=== PATIENT | male | born 1960 | race Caucasian/White ===

== ENCOUNTER 2017-10-02 16:31 | Inpatient (IN) | payer OTHER ==
[~2017-10-02] VITALS: Ht 188 cm; Wt 127.8 kg
[2017-10-02] MEDS ORDERED: PRAVACHOL10 MG PO (17:44)
[2017-10-02] MEDS ORDERED: DECADRON4 M1 PO (17:47)
[2017-10-02] MEDS ORDERED: TRAMADOL HCL50 MG PO (17:48)
[2017-10-02 17:55] VITALS: BP 155/82
[2017-10-03 00:29] VITALS: BP 137/83
[2017-10-03 05:17] VITALS: BP 132/74
[2017-10-03 05:30] LABS: HEMATOCRIT 39.7 % (38.0-50.0); HEMOGLOBIN 14.1 G/DL (12.5-16.6); MCH 30.3 PG (29.0-34.0); MCHC 35.5 G/DL (30.0-36.0); MCV 85.4 FL (86-99); PLATELET COUNT 154 K/uL (156-360); RBC DIS.WIDTH-CV 11.8 % (11.8-14.6); RED BLOOD COUNT 4.65 M/uL (4.00-5.50); WHITE BLOOD COUNT 13.6 K/uL (4.1-10.2)
[2017-10-03 05:56] LABS: ALBUMIN 3.4 G/DL (3.2-4.8); ALKALINE PHOSPHATASE 49 IU/L (3-129); ALT (GPT) 74 IU/L (3-49); AST (GOT) 23 IU/L (2-34); CHLORIDE 104 MEQ/L (99-109); CREATININE 0.7 MG/DL (0.6-1.3); GFR ESTIMATE (CALCULATED) > 59 mL/min/ (58.99-99999); GLUCOSE 131 mg/dL (70-99); SODIUM 137 MEQ/L (136-147); TOTAL BILIRUBIN 1.1 MG/DL (0.0-1.0); UREA NITROGEN (BUN) 23 mg/dL (9-23)
[2017-10-03 16:19] VITALS: BP 125/73
[2017-10-04 05:13] VITALS: BP 101/58
[2017-10-04 15:44] VITALS: BP 121/65
[2017-10-05 05:43] VITALS: BP 108/61
[2017-10-05 15:59] VITALS: BP 133/60
[2017-10-06 05:24] VITALS: BP 121/63
[2017-10-06 16:27] VITALS: BP 105/50
[2017-10-07 04:07] VITALS: BP 118/61
[2017-10-07 15:37] VITALS: BP 113/57
[2017-10-08 04:57] VITALS: BP 110/61
[2017-10-08] MEDS ORDERED: THERAGRAN1 TABLET PO (14:45)
[2017-10-08] MEDS ORDERED: DEXAMETHASONE4 MG PO (14:45)
[2017-10-08] MEDS ORDERED: TYLENOL REGULA325 MG PO (14:45)
[2017-10-08] MEDS ORDERED: LEVETIRACETAM500 MG PO (14:45)
[2017-10-08 15:46] VITALS: BP 110/55
[2017-10-09 05:27] VITALS: BP 126/63
== END 2017-10-09 09:10 | DRG 949 ==
LOC: 3WEST 16:31 → ENPENDDIS 10-09 → 3WEST 10-09 09:10
PROVIDERS: Physical Medicine & Rehabilitation Pain Medicine
PROC: F07M0ZZ Range of Motion and Joint Mobility Treatment of Musculoskeletal System - Whole Body (ICD-10-PCS; principal; 2017-10-02)
DX: Z48.811 Encounter for surgical aftercare following surgery on the nervous system (principal); G89.18 Other acute postprocedural pain; M54.2 Cervicalgia; R26.9 Unspecified abnormalities of gait and mobility; R25.3 Fasciculation; R47.01 Aphasia; D62 Acute posthemorrhagic anemia; D72.829 Elevated white blood cell count, unspecified; E66.9 Obesity, unspecified; R53.1 Weakness; F17.290 Nicotine dependence, other tobacco product, uncomplicated; F41.9 Anxiety disorder, unspecified; G93.6 Cerebral edema; Z68.36 Body mass index [BMI] 36.0-36.9, adult; E78.00 Pure hypercholesterolemia, unspecified
CPT/HCPCS: 80053; 85027; 92507 GN; 92523 GN; 95819; 97110 GO; 97530 GP; G0515 GN; J8540